=== PATIENT | female | born 1940 | race Caucasian/White ===

== ENCOUNTER 2017-01-04 17:01 | Inpatient (IN) | payer MEDICAID ==
[~2017-01-04] VITALS: Ht 154.9 cm; Wt 55.8 kg
[~2017-01-04 17:01] MED LIST: ASPI-867 PO; DOCU-138 PO; GABA-529 PO; INSU100C3 SQ; LOSA25TA3 PO; METO25TA6 PO; NEPVIT PO
[2017-01-04] MEDS ORDERED: VANCOMYCIN 1 G PREMIX 200 ML IV ONE (17:30)
[2017-01-04] MEDS ORDERED: PIPERACILLIN/TAZ 3.375G PREMIX 50 ML IV ONE (17:30)
[2017-01-04] MEDS ORDERED: METRONIDAZOLE 500 MG PREMIX 100 ML IV ONE (17:30)
[2017-01-04 17:54] LABS: BASOPHILS % 1.4 % (0.0-2.0); HEMATOCRIT. 29.1 % (36.0-48.0); HEMOGLOBIN. 9.9 g/dL (12.0-16.0); LYMPHOCYTES % 18.7 % (20.0-50.0); MEAN CORPUSCULAR VOLUME 96.8 fL (81.0-99.0); MEAN PLATELET VOLUME 8.8 fl (7.4-10.4); MONOCYTES % 8.8 % (2.0-8.0); NEUTROPHILS % 70.1 % (40.0-76.0); PLATELET 259 x1000/uL (130-400); RED BLOOD CELL COUNT 3.01 mill/uL (4.2-5.4); RED CELL DISTRIBUTION WIDTH 13.9 % (11.6-14.6)
[2017-01-04 17:59] LABS: INR 1.1; PROTHROMBIN TIME 11.6 sec (9.4-11.6)
[2017-01-04 18:01] LABS: CARBON DIOXIDE 27 mEq/L (21-32); CHLORIDE 97 mEq/L (98-107)
[2017-01-04 22:00] VITALS: BP 110/48
[2017-01-04] MEDS ORDERED: PIPERACILLIN/TAZ 3.375G PREMIX 50 ML IV NR (22:00)
[2017-01-05] VITALS: BP 110/48
[2017-01-05 04:00] VITALS: BP 160/69
[2017-01-05] MEDS ORDERED: ZOSYN XX SCH (06:15)
[2017-01-05] MEDS ORDERED: DEXTROSE 50% WATER 50ML SYRINGE IV PRN (06:15)
[2017-01-05] MEDS: INSULIN LISPRO 100 UNITS/ML SUBCUT SCH ×4 (06:42→21:00)
[2017-01-05] MEDS: BLOOD SUGAR DIAGNOSTIC STRIP TEST SCH ×4 (06:42→21:00)
[2017-01-05] MEDS: HYDROCODONE/ACETAMINOPHEN 5/325MG TABLET PO PRN ×2 (06:55→11:05)
[2017-01-05 08:00] VITALS: BP 141/55
[2017-01-05] MEDS: METOPROLOL TARTRATE 25MG TABLET PO SCH ×2 (09:00→22:31)
[2017-01-05] MEDS: LOSARTAN POTASSIUM 25 MG TABLET PO SCH (09:00)
[2017-01-05] MEDS ORDERED: DOCUSATE SODIUM 100MG CAPSULE PO PRN (09:00)
[2017-01-05] MEDS: ASPIRIN 325MG EC TABLET PO SCH (11:06)
[2017-01-05] MEDS: FOLIC ACID/VITAMIN B COMP W-C TABLET PO SCH (11:06)
[2017-01-05 11:07] LABS: BASOPHILS % 0.9 % (0.0-2.0); EOSINOPHILS % 0.8 % (0.0-5.0); HEMATOCRIT. 28.7 % (36.0-48.0); HEMOGLOBIN. 9.7 g/dL (12.0-16.0); LYMPHOCYTES % 10.7 % (20.0-50.0); MEAN CORPUSCULAR HEMOGLOBIN 32.7 pg (28.0-32.0); MEAN CORPUSCULAR VOLUME 96.7 fL (81.0-99.0); MEAN PLATELET VOLUME 8.7 fl (7.4-10.4); MONOCYTES % 4.1 % (2.0-8.0); NEUTROPHILS % 83.5 % (40.0-76.0); PLATELET 222 x1000/uL (130-400); RED BLOOD CELL COUNT 2.96 mill/uL (4.2-5.4); RED CELL DISTRIBUTION WIDTH 13.8 % (11.6-14.6)
[2017-01-05] MEDS: PIPERACILLIN/TAZ 2.25G PREMIX 50 ML IV SCH ×2 (11:07→18:21)
[2017-01-05 12:00] VITALS: BP 106/50
[2017-01-05] MEDS ORDERED: POTASSIUM CHLORIDE INJ 40 MEQ in DEXT 5% WATER 500 ML IV NR (14:00)
[2017-01-05] MEDS ORDERED: HEPARIN SODIUM 1,000 UNIT/1ML VIAL IV SCH (14:00)
[2017-01-05 16:00] VITALS: BP 109/50
[2017-01-05 20:00] VITALS: BP 155/65
[2017-01-05] MEDS: GABAPENTIN 100MG CAPSULE PO SCH (22:30)
[2017-01-06] VITALS: BP 134/64
[2017-01-06] MEDS: PIPERACILLIN/TAZ 2.25G PREMIX 50 ML IV SCH ×4 (00:29→23:30)
[2017-01-06 04:00] VITALS: BP 152/53
[2017-01-06 06:48] LABS: BASOPHILS % 1.2 % (0.0-2.0); EOSINOPHILS % 2.6 % (0.0-5.0); HEMATOCRIT. 28.7 % (36.0-48.0); HEMOGLOBIN. 9.6 g/dL (12.0-16.0); LYMPHOCYTES % 16.1 % (20.0-50.0); MEAN CORPUSCULAR HEMOGLOBIN 32.9 pg (28.0-32.0); MEAN CORPUSCULAR VOLUME 98.2 fL (81.0-99.0); MEAN PLATELET VOLUME 8.9 fl (7.4-10.4); MONOCYTES % 8.6 % (2.0-8.0); NEUTROPHILS % 71.5 % (40.0-76.0); PLATELET 225 x1000/uL (130-400); RED BLOOD CELL COUNT 2.93 mill/uL (4.2-5.4); RED CELL DISTRIBUTION WIDTH 14.3 % (11.6-14.6)
[2017-01-06] MEDS: INSULIN LISPRO 100 UNITS/ML SUBCUT SCH ×4 (06:49→21:00)
[2017-01-06] MEDS: BLOOD SUGAR DIAGNOSTIC STRIP TEST SCH ×4 (06:51→22:15)
[2017-01-06] MEDS: HYDROCODONE/ACETAMINOPHEN 5/325MG TABLET PO PRN ×2 (07:39→17:05)
[2017-01-06 08:00] VITALS: BP 118/67
[2017-01-06] MEDS: ASPIRIN 325MG EC TABLET PO SCH (08:49)
[2017-01-06] MEDS: METOPROLOL TARTRATE 25MG TABLET PO SCH ×2 (08:49→21:53)
[2017-01-06] MEDS: FOLIC ACID/VITAMIN B COMP W-C TABLET PO SCH (08:49)
[2017-01-06] MEDS: LOSARTAN POTASSIUM 25 MG TABLET PO SCH (08:50)
[2017-01-06 12:00] VITALS: BP 154/67
[2017-01-06] MEDS ORDERED: VANCOMYCIN 750 MG PREMIX 150 ML IV NR (14:00)
[2017-01-06 16:00] VITALS: BP 138/66
[2017-01-06 20:00] VITALS: BP 148/68
[2017-01-06] MEDS: GABAPENTIN 100MG CAPSULE PO SCH (21:53)
[2017-01-07] VITALS: BP 127/56
[2017-01-07 04:00] VITALS: BP 127/53
[2017-01-07] MEDS: BLOOD SUGAR DIAGNOSTIC STRIP TEST SCH ×4 (06:35→22:29)
[2017-01-07 07:44] LABS: BASOPHILS % 1.1 % (0.0-2.0); EOSINOPHILS % 4.2 % (0.0-5.0); HEMATOCRIT. 27.9 % (36.0-48.0); HEMOGLOBIN. 9.3 g/dL (12.0-16.0); LYMPHOCYTES % 17.9 % (20.0-50.0); MEAN CORPUSCULAR HEMOGLOBIN 32.6 pg (28.0-32.0); MEAN CORPUSCULAR VOLUME 98.4 fL (81.0-99.0); MONOCYTES % 7.4 % (2.0-8.0); NEUTROPHILS % 69.4 % (40.0-76.0); PLATELET 211 x1000/uL (130-400); RED BLOOD CELL COUNT 2.84 mill/uL (4.2-5.4); RED CELL DISTRIBUTION WIDTH 13.9 % (11.6-14.6)
[2017-01-07] MEDS: INSULIN LISPRO 100 UNITS/ML SUBCUT SCH ×4 (07:50→23:14)
[2017-01-07 08:00] VITALS: BP 133/56
[2017-01-07] MEDS: FOLIC ACID/VITAMIN B COMP W-C TABLET PO SCH (11:01)
[2017-01-07] MEDS: PIPERACILLIN/TAZ 2.25G PREMIX 50 ML IV SCH ×2 (11:01→17:18)
[2017-01-07] MEDS: ASPIRIN 325MG EC TABLET PO SCH (11:02)
[2017-01-07] MEDS: METOPROLOL TARTRATE 25MG TABLET PO SCH ×2 (11:02→22:27)
[2017-01-07] MEDS: LOSARTAN POTASSIUM 25 MG TABLET PO SCH (11:02)
[2017-01-07 12:00] VITALS: BP 84/48
[2017-01-07 16:00] VITALS: BP 153/61
[2017-01-07 20:00] VITALS: BP 148/65
[2017-01-07] MEDS: GABAPENTIN 100MG CAPSULE PO SCH (22:26)
[2017-01-08] VITALS: BP 142/52
[2017-01-08] MEDS: PIPERACILLIN/TAZ 2.25G PREMIX 50 ML IV SCH ×2 (00:27→08:10)
[2017-01-08 04:00] VITALS: BP 128/57
[2017-01-08 06:14] LABS: BASOPHILS % 0.9 % (0.0-2.0); EOSINOPHILS % 5.3 % (0.0-5.0); HEMATOCRIT. 26.9 % (36.0-48.0); HEMOGLOBIN. 8.9 g/dL (12.0-16.0); LYMPHOCYTES % 17.7 % (20.0-50.0); MEAN CORPUSCULAR HEMOGLOBIN 32.6 pg (28.0-32.0); MEAN CORPUSCULAR VOLUME 98.2 fL (81.0-99.0); MEAN PLATELET VOLUME 9.4 fl (7.4-10.4); MONOCYTES % 7.1 % (2.0-8.0); PLATELET 208 x1000/uL (130-400); RED BLOOD CELL COUNT 2.74 mill/uL (4.2-5.4); RED CELL DISTRIBUTION WIDTH 14.1 % (11.6-14.6)
[2017-01-08] MEDS: INSULIN LISPRO 100 UNITS/ML SUBCUT SCH ×4 (07:50→21:00)
[2017-01-08] MEDS: BLOOD SUGAR DIAGNOSTIC STRIP TEST SCH ×4 (07:58→22:01)
[2017-01-08 08:00] VITALS: BP 122/43
[2017-01-08] MEDS: FOLIC ACID/VITAMIN B COMP W-C TABLET PO SCH (08:10)
[2017-01-08] MEDS: ASPIRIN 325MG EC TABLET PO SCH (08:10)
[2017-01-08] MEDS: LOSARTAN POTASSIUM 25 MG TABLET PO SCH (08:40)
[2017-01-08] MEDS: METOPROLOL TARTRATE 25MG TABLET PO SCH ×2 (08:40→22:06)
[2017-01-08] MEDS ORDERED: VANCOMYCIN 500 MG PREMIX 100 ML IV SCH (09:00)
[2017-01-08 12:00] VITALS: BP 114/59
[2017-01-08] MEDS: MEROPENEM 500MG in NORMAL SALINE 50ML IV SCH (12:58)
[2017-01-08 16:00] VITALS: BP 116/42
[2017-01-08 20:00] VITALS: BP 122/56
[2017-01-08] MEDS: GABAPENTIN 100MG CAPSULE PO SCH (22:05)
[2017-01-09] VITALS: BP 134/56
[2017-01-09 04:00] VITALS: BP 128/59
[2017-01-09] MEDS: INSULIN LISPRO 100 UNITS/ML SUBCUT SCH ×4 (07:50→23:45)
[2017-01-09 08:00] VITALS: BP 150/80
[2017-01-09] MEDS: BLOOD SUGAR DIAGNOSTIC STRIP TEST SCH ×4 (08:05→21:00)
[2017-01-09] MEDS: METOPROLOL TARTRATE 25MG TABLET PO SCH ×2 (08:55→23:46)
[2017-01-09] MEDS: FOLIC ACID/VITAMIN B COMP W-C TABLET PO SCH (08:55)
[2017-01-09] MEDS: LOSARTAN POTASSIUM 25 MG TABLET PO SCH (08:56)
[2017-01-09] MEDS: ASPIRIN 325MG EC TABLET PO SCH (09:00)
[2017-01-09 10:06] LABS: EOSINOPHILS % 5.6 % (0.0-5.0); HEMATOCRIT. 29.5 % (36.0-48.0); HEMOGLOBIN. 9.8 g/dL (12.0-16.0); LYMPHOCYTES % 19.7 % (20.0-50.0); MEAN CORPUSCULAR VOLUME 98.8 fL (81.0-99.0); MEAN PLATELET VOLUME 8.8 fl (7.4-10.4); MONOCYTES % 5.5 % (2.0-8.0); NEUTROPHILS % 68.2 % (40.0-76.0); PLATELET 207 x1000/uL (130-400); RED BLOOD CELL COUNT 2.98 mill/uL (4.2-5.4); RED CELL DISTRIBUTION WIDTH 14.4 % (11.6-14.6)
[2017-01-09 12:00] VITALS: BP 124/54
[2017-01-09] MEDS: MEROPENEM 500MG in NORMAL SALINE 50ML IV SCH (12:49)
[2017-01-09] MEDS ORDERED: NORMAL SALINE 0.9% 10 ML SYR ONE (12:59)
[2017-01-09] MEDS ORDERED: GENTAMICIN SULF 40MG/ML 2ML VIAL ONE (12:59)
[2017-01-09] MEDS ORDERED: BUPIVACAINE HCL/PF 0.5% (5MG/ML) 10ML ONE (12:59)
[2017-01-09] MEDS ORDERED: LIDOCAINE HCL 1% 20ML VIAL (Pyxis) INJ ONE ×2 (13:00→14:52)
[2017-01-09] MEDS ORDERED: BACITRACIN 50,000 UNITS/VIAL ONE (13:00)
[2017-01-09] MEDS ORDERED: FENTANYL CITRATE/PF 50MCG/ML 2ML VIAL ONE (14:49)
[2017-01-09] MEDS ORDERED: MIDAZOLAM HCL 2 MG/2 ML VIAL ONE (14:49)
[2017-01-09] MEDS ORDERED: CEFAZOLIN SODIUM 1000MG/VIAL ONE (14:52)
[2017-01-09] MEDS ORDERED: DEXAMETHASONE 4MG/ML 1ML VIAL ONE (14:52)
[2017-01-09] MEDS ORDERED: SODIUM CHLORIDE 0.9% 10ML VIAL ONE (14:52)
[2017-01-09] MEDS ORDERED: PROPOFOL 200MG/20ML VIAL IV ONE (14:52)
[2017-01-09] MEDS ORDERED: ONDANSETRON HCL 4MG/2ML VIAL ONE (14:52)
[2017-01-09] MEDS ORDERED: LABETALOL HCL 20MG/4ML CARPUJECT IV PRN (15:15)
[2017-01-09] MEDS ORDERED: ONDANSETRON HCL 4MG/2ML VIAL IV PRN (15:15)
[2017-01-09] MEDS ORDERED: HYDROMORPHONE HCL/PF 2MG/ML CPJ IV PRN (15:15)
[2017-01-09] MEDS ORDERED: MEPERIDINE HCL/PF 25MG/ML CPJ IV PRN (15:15)
[2017-01-09 20:00] VITALS: BP 125/38
[2017-01-09] MEDS: GABAPENTIN 100MG CAPSULE PO SCH (23:46)
[2017-01-10] VITALS: BP 150/55
[2017-01-10 04:00] VITALS: BP 138/51
[2017-01-10] MEDS: BLOOD SUGAR DIAGNOSTIC STRIP TEST SCH ×4 (06:56→21:00)
[2017-01-10] MEDS: INSULIN LISPRO 100 UNITS/ML SUBCUT SCH ×4 (06:57→21:00)
[2017-01-10 07:07] LABS: BASOPHILS % 0.4 % (0.0-2.0); EOSINOPHILS % 0.1 % (0.0-5.0); LYMPHOCYTES % 10.2 % (20.0-50.0); MEAN CORPUSCULAR VOLUME 98.6 fL (81.0-99.0); MEAN PLATELET VOLUME 9.2 fl (7.4-10.4); MONOCYTES % 4.3 % (2.0-8.0); PLATELET 215 x1000/uL (130-400); RED BLOOD CELL COUNT 3.04 mill/uL (4.2-5.4); RED CELL DISTRIBUTION WIDTH 14.6 % (11.6-14.6)
[2017-01-10 08:00] VITALS: BP 160/63
[2017-01-10] MEDS: LOSARTAN POTASSIUM 25 MG TABLET PO SCH (09:27)
[2017-01-10] MEDS: FOLIC ACID/VITAMIN B COMP W-C TABLET PO SCH (09:27)
[2017-01-10] MEDS: ASPIRIN 325MG EC TABLET PO SCH (09:29)
[2017-01-10] MEDS: METOPROLOL TARTRATE 25MG TABLET PO SCH ×2 (09:36→22:08)
[2017-01-10 12:00] VITALS: BP 167/69
[2017-01-10] MEDS: MEROPENEM 500MG in NORMAL SALINE 50ML IV SCH (12:00)
[2017-01-10 16:00] VITALS: BP 153/60
[2017-01-10 20:00] VITALS: BP 170/54
[2017-01-10] MEDS: GABAPENTIN 100MG CAPSULE PO SCH (22:08)
[2017-01-11] VITALS: BP 136/57
[2017-01-11 04:00] VITALS: BP 185/73
[2017-01-11] MEDS: INSULIN LISPRO 100 UNITS/ML SUBCUT SCH ×3 (06:33→17:50)
[2017-01-11] MEDS: BLOOD SUGAR DIAGNOSTIC STRIP TEST SCH ×3 (06:33→17:20)
[2017-01-11 08:00] VITALS: BP 177/71
[2017-01-11] MEDS: ASPIRIN 325MG EC TABLET PO SCH (08:27)
[2017-01-11] MEDS: LOSARTAN POTASSIUM 25 MG TABLET PO SCH (08:27)
[2017-01-11] MEDS: FOLIC ACID/VITAMIN B COMP W-C TABLET PO SCH (08:27)
[2017-01-11] MEDS: METOPROLOL TARTRATE 25MG TABLET PO SCH (08:30)
[2017-01-11 12:00] VITALS: BP 160/61
[2017-01-11] MEDS: MEROPENEM 500MG in NORMAL SALINE 50ML IV SCH (13:36)
[2017-01-11 15:33] VITALS: BP 120/60
[2017-01-11 16:00] VITALS: BP 120/60
== END 2017-01-11 17:50 | disposition home or self-care (01) | DRG 314 ==
LOC: EDBEDREQ 17:35 → ENRESERV 20:48 → ER 22:32 → 6EST 22:47
PROVIDERS: ADMIT Internal Medicine; ATTEND Internal Medicine
PROC: 0QBN0ZZ Excision of Right Metatarsal, Open Approach (ICD-10-PCS; 2017-01-08)
PROC: 0Y9M0ZZ Drainage of Right Foot, Open Approach (ICD-10-PCS; principal; 2017-01-09 14:30)
DX: E11.69 Type 2 diabetes mellitus with other specified complication (principal); M86.9 Osteomyelitis, unspecified; E43 Unspecified severe protein-calorie malnutrition; E11.621 Type 2 diabetes mellitus with foot ulcer; N18.6 End stage renal disease; E11.22 Type 2 diabetes mellitus with diabetic chronic kidney disease; I12.0 Hypertensive chronic kidney disease with stage 5 chronic kidney disease or end stage renal disease; L97.519 Non-pressure chronic ulcer of other part of right foot with unspecified severity; L89.619 Pressure ulcer of right heel, unspecified stage; Z99.2 Dependence on renal dialysis; D63.1 Anemia in chronic kidney disease; E87.6 Hypokalemia; E11.51 Type 2 diabetes mellitus with diabetic peripheral angiopathy without gangrene; E11.40 Type 2 diabetes mellitus with diabetic neuropathy, unspecified; E11.319 Type 2 diabetes mellitus with unspecified diabetic retinopathy without macular edema; Z89.512 Acquired absence of left leg below knee; H54.0 Blindness, both eyes; Z79.82 Long term (current) use of aspirin; Z79.899 Other long term (current) drug therapy
CPT/HCPCS: 36415; 73620; 73630; 73721; 80048; 80053; 80202; 82962; 83605; 85025; 85610; 87040; 87070; 87075; 87077; 87186; 87205; 88304; 88311; 93005; 93923; 96365; 96366; 96368; 97162; 99285; A4216; A6261; C1893; J0690; J1100; J1580; J1644; J1815; J2185; J2250; J2405; J2543; J2704; J3010; J3370; J3480; J3490; J7030; J7040; J7060